=== PATIENT | female | born 1950 | race Caucasian/White ===

== ENCOUNTER 2025-10-16 10:03 | Inpatient (IN) | payer MEDICARE, MEDICAID, SELFPAY ==
[2025-10-16] VITALS (10 sets, daily range): BP systolic 113–157; BP diastolic 55–88; PULSE 61–126; RESP 12–85; TEMP 36.4–37.6; O2SAT 85–100; BMI 33.9
--- NOTE | 2025-10-16 11:25 | XR_ITS ---
AP upright portable chest film 10/16/2025 at 11:49 a.m. INDICATION: Sepsis FINDINGS: Patient is status post multilevel surgical fusion at several levels in the mid lower cervical spine. There is moderately prominent S-shaped scoliosis of the dorsal spine. 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 Heart size is normal, there is mild elongation and tortuosity of the thoracic aorta. The mediastinum and hilar regions appear normal. Both right and left lungs and pleural space are clear normal. There are several old healed rib fractures posterolaterally on the right, at T6 and T7. IMPRESSION: 1. Mild elongation and tortuosity of the thoracic aorta. 2. Chest film otherwise normal, please see above
--- NOTE | 2025-10-16 11:25 | XR_ITS ---
Examination: CT brain head without contrast. 2-D sagittal coronal reconstructions Date and time of exam: October 16, 2025, 1147 hours INDICATIONS: Altered mental status today CTDI: vol (mGy): 61.7 DLP: (mGycm): 1303 Technique: Multiple CT axial sections of the brain have been obtained, 5 mm slice thickness. Contrast has not been administered. 2-D sagittal, coronal reconstructions have been obtained Low dose protocols were performed. One or more of the following dose reduction techniques were used; automated exposure control, adjustment of the mA and/or KV according to patient size, use of iterative reconstruction technique. Findings: No significant ventricular enlargement. Intra-axial or extra-axial hemorrhage density is not seen. No mass effect or midline shift Basal cisterns are not remarkable. Fourth ventricle is midline. Cranial vault intact. Benign bony exostosis off the posterior parietal lobe Impression: Negative for acute hemorrhage, mass effect or midline shift Advise clinical correlation and follow-up accordingly
--- NOTE | 2025-10-16 11:26 | EDNOTE_ITS ---
Altered Mental Status RME/HPI General Chief Complaint: Altered Mental Status Stated Complaint: AMS Time Seen by Provider: 10/16/25 11:20 Arrival date/time: 10/16/25 10:03 75-year-old female patient with significant history of Parkinson disease, hypertension DNR, selective treatment from SNF, was sent to us for e valuation regarding altered mental status. Normally patient is GCS 15, and on room air. Patient was noted to be last well-known time 12:30 AM this morning. Currently patient is alert and oriented x 1 only and she knows her name. Patient also was noted to be hypoxic, satting below 90 on room air. No other pertinent information can be extracted at this time. Related Data Allergies Allergy/AdvReac Type Severity Reaction Status Date / Time No Known Allergies Allergy Verified 10/16/25 11:56 Review of Systems Review of Systems Narrative Review of Systems: Review of system reviewed and within normal limits except mentioned in HPI ED Exam Narrative Physical exam: VITAL SIGNS: Reviewed. GENERAL APPEARANCE: Alert and oriented x 1, does not follows commands, no acute distress, HEAD AND FACE: Non-traumatic. ENT: PERRL, pink conjunctivitis, eyelid no trauma, Mucous membrane moist. NECK: Supple, nontender, no nuchal rigidity. CHEST: No tenderness, no crepitus, no paradoxical movement, no retractions. LUNGS: Clear, well ventilated, symmetric, no rales, no wheezing, no ronchi, no stridor, good breath sounds bilaterally. HEART: Regular rate, regular rhythm, no murmur, no gallops. ABDOMEN: Soft, positive bowel sounds, nondistended, no guarding, nontender, no rebound, no masses, RECTAL: Deferred. GENITAL: Deferred. NEUROLOGICAL: Gross motor function intact sensory function intact, Appropriate for age. MUSCULOSKELETAL: low back nontender, full range of motion. EXTREMITIES: Nontender, full range of motion. SKIN: Color pink, dry, no rash, no lacerations, no abrasions, no contusions. LYMPHATICS: Deferred. Course Quality Measures none Orders Category Date Time Status Admit to Inpatient Status Routine Admission 10/16/25 15:50 Active Patient Condition Routine Admission 10/16/25 15:50 Ordered Bedside COVID-19 Antigen Test NOW Care 10/16/25 11:26 Active Bedside Influenza A&B Antigen Test NOW Care 10/16/25 11:26 Completed COVID-19 Screening Questionnaire NOW Care 10/16/25 13:39 Active Photographic Hand Developer STAT Care 10/16/25 11:24 Active Continuous Pulse Oximetry STAT Care 10/16/25 11:24 Completed Decision to Admit X1 Care 10/16/25 13:39 Completed EKG (ED ONLY) *Do not use* NOW Care 10/16/25 10:36 Completed EKG (ED ONLY) *Do not use* NOW Care 10/16/25 11:24 Completed In and Out Catheter X1PRN Care 10/16/25 11:24 Completed Insert IV NOW Care 10/16/25 11:24 Active NPO STAT Care 10/16/25 11:24 Active Notify provider NEEDED Care 10/16/25 15:50 Active One-to-one observation NOW Care 10/16/25 13:09 Active Strict Intake and Output Routine Care 10/16/25 11:[address] head/brain wo con Stat Exams 10/16/25 11:25 Completed EKG (ED Only) Stat Exams 10/16/25 10:36 Ordered EKG (ED Only) Stat Exams 10/16/25 11:24 Ordered XR chest 1V SEPSIS PROTOCOL Stat Exams 10/16/25 11:25 Completed ABG [Arterial Blood Gas] Stat Lab 10/16/25 12:40 Completed B-Type Natriuretic Peptide Stat Lab 10/16/25 11:45 Completed Blood Culture (Lab) Stat Lab 10/16/25 12:00 Received CBC AM DRAW Lab 10/17/25 05:00 Ordered CBC AM DRAW Lab 10/18/25 05:00 Ordered CBC AM DRAW Lab 10/19/25 05:00 Ordered CBC Stat Lab 10/16/25 11:45 Completed Comprehensive Metabolic Panel AM DRAW Lab 10/17/25 05:00 Ordered Comprehensive Metabolic Panel AM DRAW Lab 10/18/25 05:00 Ordered Comprehensive Metabolic Panel AM DRAW Lab 10/19/25 05:00 Ordered Comprehensive Metabolic Panel Stat Lab 10/16/25 11:45 Completed LDH (Lactate Dehydrogenase) Stat Lab 10/16/25 11:45 Completed Lactate (Lactic Acid) Stat Lab 10/16/25 11:45 Completed Lactic Acid, 3 HR Stat Lab 10/16/25 15:48 Completed Lipase Stat Lab 10/16/25 11:45 Completed Lipid Panel AM DRAW Lab 10/17/25 05:00 Ordered Magnesium AM DRAW Lab 10/17/25 05:00 Ordered Magnesium AM DRAW Lab 10/18/25 05:00 Ordered Magnesium AM DRAW Lab 10/19/25 05:00 Ordered Magnesium Stat Lab 10/16/25 11:45 Completed Partial Thromboplastin Time Stat Lab 10/16/25 11:45 Completed Phosphorous AM DRAW Lab 10/17/25 05:00 Ordered Phosphorous AM DRAW Lab 10/18/25 05:00 Ordered Phosphorous AM DRAW Lab 10/19/25 05:00 Ordered Phosphorous Stat Lab 10/16/25 11:45 Completed Procalcitonin Stat Lab 10/16/25 11:45 Completed Prothrombin Time with INR Stat Lab 10/16/25 11:45 Completed Thyroid Stimulating Hormone AM DRAW Lab 10/17/25 05:00 Ordered Troponin I Stat Lab 10/16/25 11:45 Completed Urinalysis, C/S if Indicated Stat Lab 10/16/25 11:44 Completed Heparin Inj Med 10/16/25 21:00 Active 5,000 unit SC Q12HR Magnesium Sulfate 4 GM Ivpb [Magnesium Sulfate Ivpb] Med 10/16/25 12:47 Active 4 gm in 50 ml IV X1 Ringers Lactated 1000 ml [Lactated Ringers] 1,000 ml Med 10/16/25 11:26 Discontinued IV 999 mls/hr Ringers Lactated 1000 ml [Lactated Ringers] 1,000 ml Med 10/16/25 13:36 Discontinued IV 999 mls/hr cefTRIAXone/D5w 1gm IV premix [Rocephin/D5w 1gm IV Med 10/16/25 12:15 Disc ontinued premix] 1 gm in 50 ml IV X1 Code Status Routine Oth 10/16/25 15:50 Ordered BiPAP / CPAP NOW RT 10/16/25 13:10 Active Oxygen Delivery NOW RT 10/16/25 11:24 Active Vital Signs Vital signs: Vital Signs Temperature 99.6 F 10/16/25 10:35 Pulse Rate 85 10/16/25 10:35 Respiratory Rate 12 10/16/25 10:35 Blood Pressure 122/88 H 10/16/25 10:35 Pulse Oximetry (%) 96 10/16/25 10:35 Oxygen Delivery Method Nasal Cannula 10/16/25 10:35 Oxygen Flow Rate 4 10/16/25 10:35 Altered Mental Status MDM Narrative MDM Narrative:: 75-year-old female patient with significant history of Parkinson disease, hypertension DNR, selective treatment from SNF, was sent to us for evaluation regarding altered mental status. Normally patient is GCS 15, and on room air. Patient was noted to be last well-known time 12:30 AM this morning. Currently patient is alert and oriented x 1 only and she knows her name. Patient also was noted to be hypoxic, satting below 90 on room air. No other pertinent information can be extracted at this time. CT scan of the head came back unremarkable as chest x-ray also came back with no pneumonia. Patient's lactic acid initially was noted to be 11.1. Magnesium 0.9 phosphorus 2.3 calcium 7.1 urinalysis no UTI. ABG showed pH of 7.17, pCO2 98. Patient was given 2 L of IV fluids, IV ceftriaxone, and I placed her on BiPAP. Patient repeat lactic acid was noted to be 1.1. Patient case discussed with hospitalist, who admitted the patient. Patient data External records reviewed:: None Clinical information provided by:: none Social determinants that could affect healthcare access:: none Patient has the following chronic illnesses:: DNR, hypertension Parkinson's How is presenting disease/condition affected by chronic disease/condition?: exacerbated by Evaluation data The following diagnostics were reviewed and interpreted by me:: lab results, radiology exam(s) and EKG tracing(s) Lab and/or radiology exams considered but not ordered:: None Interpretation Summary: See above EKG showed sinus rhythm, ventricular rate of 98 bpm, no ST segment elevation or depression noted. Medications / Prescriptions Medications or Prescriptions considered but not ordered:: None Medication administrations:: Medication Administration History Heparin Sodium (Porcine) (Heparin Sod Inj 5000 Unit/Ml Vial) 5,000 unit SC Q12HR RADHA Stop: 10/30/25 20:59 Magnesium Sulfate (Magnesium Sulfate Ivpb) 4 gm in 50 mls @ 12.5 mls/hr IV X1 ONE Stop: 10/16/25 16:46 Last Admin: 10/16/25 12:55 Dose: 12.5 mls/hr Documented By: VG Discontinued Medications Ceftriaxone Sodium/Dextrose (Rocephin/D5w 1gm Iv Premix) 1 gm in 50 mls @ 100 mls/hr IV X1 ONE Stop: 10/16/25 12:44 Last Infusion: 10/16/25 13:36 Dose: Infused Documented By: Admin: 10/16/25 12:35 Dose: 100 mls/hr Documented By: VG Lactated Ringer's (Lactated Ringers) 1,000 mls @ 999 mls/hr IV .Q1H1M ONE Stop: 10/16/25 12:26 Last Infusion: 10/16/25 13:15 Dose: Infused Documented By: Admin: 10/16/25 12:01 Dose: 999 mls/hr Documented By: VG Lactated Ringer's (Lactated Ringers) 1,000 mls @ 999 mls/hr IV .Q1H1M ONE Stop: 10/16/25 14:36 Last Infusion: 10/16/25 15:29 Dose: Infused Documented By: Admin: 10/16/25 13:56 Dose: 999 mls/hr Documented By: VG IV fluids, ceftriaxone IV, magnesium sulfate Consultations Consultation(s) initiated? (list below): No Diagnosis Differential diagnosis altered mental status: altered mental status and sepsis Most likely diagnosis given after review of the tests above:: Altered mental status, acute hypercapnic respiratory failure Admission Indicated Admission indicated?: indicated Admission Request Was there a request for admission?: Yes Admission Attestation Admission request attestation: Discussed case with [Dr. Hernandez] from Hospitalist service regarding admission. Discussed patients ED course, exam findings, labs, and radiology results. The Hospitalist [agrees] to accept the patient for admission. Disposition Plan Disposition Plan: Admit Discharge Plan Plan Patient Disposition: Admit Acute Care w/in Hospital Discharge Disposition comment: Stable Prescriptions/Referrals Referrals: Gustavo Payne MD [Primary Care Provider] - In 1 week Problem List Clinical Impression: Altered mental status, Acute hypercapnic respiratory failure Patient/Caregiver Discharge Instructions Print Language: Tajik Stand Alone Forms: [employer] Award Info., Patient Portal Info Letter
--- NOTE | 2025-10-16 11:35 | PC.NURSE ---
PT TAKEN TO CT.
[2025-10-16 12:00] LABS: Basophils # (Auto) 0.0 Thou/mm3 (0.0-0.2); Basophils % (Auto) 0 % (0-2.5); Eosinophils # (Auto) 0.1 Thou/mm3 (0.0-0.5); Eosinophils % (Auto) 2 % (0-10); Hematocrit 26.0 % (36.0-46.0); Immature Granulocytes Auto 0.03 Thou/mm3 (0.00-0.00); Lymphocytes # (Auto) 0.9 Thou/mm3 (1.0-4.8); Lymphocytes % (Auto) 20 % (10-50); Mean Corpuscular HGB Conc 31.9 g/dl (31.0-37.0); Mean Corpuscular Hemoglobin 32.3 pg (25.0-35.0); Mean Corpuscular Volume 101 fL (80-100); Monocytes # (Auto) 0.6 Thou/mm3 (0.0-0.8); Monocytes % (Auto) 13 % (0-12); Neutrophils # (Auto) 3.0 Thou/mm3 (1.8-7.7); Neutrophils % (Auto) 64 % (37-80); Nucleated Red Blood Cell # 0.00 Thou/mm3 (0.00-0.00); Nucleated Red Blood Cell % 0 /100 WBC (0); Platelet Count 130 Thou/mm3 (140-440); RDW Standard Deviation 49.6 fL (36.4-46.3); Red Blood Count 2.57 Miln/mm3 (4.00-5.20); White Blood Count 4.6 Thou/mm3 (3.6-11.0)
[2025-10-16 12:01] LABS: Lactate (Lactic Acid) 11.9 mMol/L (0.4-2.0)
[2025-10-16] MEDS: RINGERS LACTATED 1000 ML 1,000 ML 999 ML IV ×2 (12:01→13:56)
[2025-10-16 12:03] LABS: Hemoglobin 8.3 g/dL (12.0-16.0)
[2025-10-16 12:05] LABS: Collection Type, Urine Clean Catch
[2025-10-16 12:14] LABS: Bacteria,Urine Rare; Bilirubin,Urine Negative (Negative); Blood,Urine Negative (Negative); Clarity,Urine Clear (Clear/Hazy); Color,Urine Drk-Yellow (Lt Yel-Yel); Culture Indicated,Urine Not Indicated; Glucose, Urine Negative (Negative); Hyaline Casts,Urine < 1 /hpf (0-1); Ketones,Urine Negative (Negative); Leukocyte Esterase,Urine Positive (Negative); Nitrite,Urine Negative (Negative); PH,Urine 6.0 (5.0-7.0); Protein,Urine Negative (Neg - Trace); RBC,Urine 3 /hpf (0-3); Specific Gravity,Urine 1.020 (1.001-1.035); Squamous Epithelial Cell,Urine < 1 /hpf (0-5); Urobilinogen,Urine Negative mg/dL (0.0-1.0); WBC,Urine 4 /hpf (0-5)
[2025-10-16 12:35] LABS: Alanine Aminotransferase < 7 U/L (10-49); Albumin, Serum 1.7 gm/dL (3.4-4.8); Albumin/Globulin Ratio 1.1 (1.2-2.2); Alkaline Phosphatase 42 U/L (46-116); Anion Gap 15 (7-16); Aspartate Amino Transferase 12 U/L (0-34); BUN/Creatinine Ratio 58 Ratio (12-20); Bilirubin,Total < 0.2 mg/dL (0.3-1.2); Blood Urea Nitrogen 23 mg/dL (9-23); Calcium 7.1 mg/dL (8.3-10.6); Calcium (Corrected) 8.9 mg/dL (8.5-10.1); Carbon Dioxide 22.3 mMol/L (20.0-31.0); Chloride 103 mMol/L (98-107); Creatinine (Component) 0.4 mg/dL (0.6-1.3); Globulin 1.6 gm/dL (2.3-3.5); Glucose 77 mg/dL (74-106); LDH (Lactate Dehydrogenase) 121 U/L (120-246); Lipase 24 U/L (12-53); Osmolality,Calculated 282 (275-295); Phosphorous 2.3 mg/dL (2.4-5.1); Potassium 4.5 mMol/L (3.4-5.1); Procalcitonin < 0.04 ng/ml (0.0-0.49); Sodium 140 mMol/L (136-145); Total Protein 3.3 gm/dL (5.7-8.2); Troponin I < 0.002 ng/mL (0.0-0.045); eGFR > 60 See Note
[2025-10-16] MEDS: cefTRIAXone/D5w 1gm IV premix 1 GM/50 ML BAG IV (12:35)
[2025-10-16 12:46] LABS: Magnesium 0.9 mg/dL (1.6-2.6)
[2025-10-16 12:47] LABS: Base Excess 3 (-3-3); HCO3 35 mEq/L (20-26); Inspired O2, VO2 Liters 6 L/min; Inspired Oxygen, FIO2 21 %; O2 Saturation 95 % (91-98); PCO2 98 mmHg (32.0-48.0); PO2 88 mmHg (83-108)
[2025-10-16 12:48] LABS: pH, Arterial 7.17 (7.35-7.45)
[2025-10-16 12:49] LABS: Allen Test Performed/OK; Puncture Site Right Radial
[2025-10-16] MEDS: Magnesium Sulfate 4 GM Ivpb 4 GM/50 ML BAG IV (12:55)
[2025-10-16 13:16] LABS: INR 1.2 (0.9-1.3); Partial Thromboplastin Time 30.1 Seconds (22.0-36.0); Prothrombin Time 12.9 Seconds (9.0-12.2)
[2025-10-16 13:17] LABS: B-Type Natriuretic Peptide 22 pg/mL (0-100)
--- NOTE | 2025-10-16 13:45 | PC.RT ---
Patient placed on NIV for respiratory failure. Pt tolerating settings of 14/6/RR20/30%FiO2. Sitter at bedside. NIV alarms on and audible.
[2025-10-16 14:54] LABS: Reflex Lactate? Y
[2025-10-16 15:55] LABS: Lactic Acid, 3 HR 1.1 mMol/L (0.4-2.0)
--- NOTE | 2025-10-16 16:15 | ESHP_ITS ---
<Statement entered by Rex Cuadra MD - 10/19/25 08:03> I reviewed above note and agree with findings and plans. I have also personally examined the patient with medicine team and went over assessment and plan with medical team including international project manager and resident physician. Documentation for date of: 10/16/25 HPI History of Present Illness History of present illness: Patient is a 75 year old female with PMH of Parkinsonism, HLD, HTN, chronic peripheral venous insufficiency, ?chronic back pain, asthma, hypothyroidism, NF, and GERD who presents to the ED on 10/16/[address] [facility] for altered mental status. GCS 7 per EMT, was told by staff that last known well was 12:30AM. Was GCS 15 in ED on evaluation but was not answering questions. History was obtained from brother due to patient's current mental status. He reports that patient had slurring speech and was not making sense for the past 2 days. Of note, patient was started on risperidol and divalproex acid on 10/13 per chart review, was discontinued from olanzapine. Has been bed bound for the past month due to generalized weakness. AOx3 at baseline per brother. ED Course: -Initial vitals: BP 122/88, saturating 4L NC. -Labs significant for hemoglobin 8.3, platelets 130. WBC within normal limits. CMP unremarkable, however lactic 11.9, phosphorus 2.3, magnesium 0.9, albumin 1.7. LDH, troponin, Pro-Atul negative. - ABG pH 7.17, pCO2 98 --> improved after BiPAP - UA was positive for leukocyte esterase, however rare bacteria. -Imaging included CXR mild elongation and tortuosity of the thoracic aorta, otherwise unremarkable. Negative for PNA. Head CT negative for acute infarct. -In the ED, patient was given 2 L LR bolus, CFX x 1, magnesium sulfate 4 g x 1. -Patient was admitted for acute encephalopathy secondary to polypharmacy versus metabolic. Review of Systems Review of systems otherwise negative except what is mentioned above. Past Medical History: as above Family History: noncontributory Surgical History: right artificial hip joint Social History: Denies history of smoking, denies current alcohol use, denies recreational drug use Current Medications: pending official med rec Allergies: No known drug allergies Exam Vital Signs Temp Pulse Resp BP Pulse Ox O2 Del Method O2 Flow Rate 97.6 F 91 14 113/55 L 98 BiPAP 4 10/16/25 14:00 10/16/25 14:00 10/16/25 14:00 10/16/25 14:00 10/16/25 14:00 10/16/25 14:00 10/16/25 10:35 FiO2 30 10/16/25 14:00 Narrative Exam Physical Exam General: Drowsy. Following simple commands but not answering questions. On BiPAP. HEENT: Normocephalic, atraumatic, mucous membranes dry. Heart: Regular rate and rhythm, normal S1 and S2, no murmurs appreciated. Lungs: Decreased breath sounds in lower lobes. No rhonchi, wheezing, or crackles appreciated. Abdomen: Soft, nondistended, nontender, positive bowel sounds. No guarding or rebound tenderness. Neurologic: No gross neurological deficit, and patient able to move all 4 extremities. Extremities: Extremities cool, mildly cyanotic. Pulses present. Decreased strength in lower extremities. No neurological deficits noted. Skin: No rash or ecchymoses. Results: Labs 10/17/25 05:57 10/17/25 05:57 Labs: Short CBC 10/16/25 Range/Units 11:45 WBC 4.6 (3.6-11.0) Thou/mm3 Hgb 8.3 L (12.0-16.0) g/dL Hct 26.0 L (36.0-46.0) % Plt Count 130 L (140-440) Thou/mm3 BMP 10/16/25 11:45 Sodium 140 Potassium 4.5 Chloride 103 Carbon Dioxide 22.3 BUN 23 Creatinine 0.4 L Glucose 77 Calcium 7.1 L Cardiac Enzymes 10/16/25 Range/Units 11:45 Troponin I < 0.002 (0.0-0.045) ng/mL Liver Function 10/16/25 Range/Units 11:45 Total Bilirubin < 0.2 L (0.3-1.2) mg/dL AST 12 (0-34) U/L ALT < 7 L (10-49) U/L Alkaline Phosphatase 42 L (46-116) U/L Albumin 1.7 L (3.4-4.8) gm/dL Urine 10/16/25 Range/Units 11:44 Urine Color Drk-Yellow A (Lt Yel-Yel) Urine Clarity Clear (Clear/Hazy) Urine pH 6.0 (5.0-7.0) Ur Specific [place] 1.020 (1.001-1.035) Urine Protein Negative (Neg - Trace) Urine Glucose (UA) Negative (Negative) ABG Interpretation ABG results: 10/16/25 12:40 ABG pH 7.17 L* ABG pCO2 98 H* ABG pO2 88 ABG HCO3 35 H ABG O2 Saturation 95 ABG Base Excess 3 Quality Measures Quality Measures VTE prophylaxis Advance care planning discussed with:: sibling Medications Home Medications and Allergies Home Medications ?Medication ?Instructions ?Recorded ?Confirmed ?Type acetaminophen 500 mg capsule 500 mg PO Q12H PRN pain ( scale 10/16/25 10/16/25 History score 4-6) albuterol sulfate 2.5 mg/3 mL 1.25 mg inhalation Q6H 1 12/17/24 10/16/25 History (0.083 %) solution for nebulization albuterol sulfate 90 mcg/actuation 2 inh inhalation Q4 H PRN sob 10/16/25 10/16/25 History aerosol inhaler (Ventolin HFA) bisacodyl 10 mg rectal suppository 10 mg VA QDAY PRN c onstipation 10/16/25 10/16/25 History (Dulcolax (bisacodyl)) bismuth subsalicylate 262 mg/15 mL 524 mg PO Q12H PRN nausea 10/16/25 10/16/25 History oral suspension cholecalciferol (vitamin D3) 125 5,000 unit PO QDAY 10/16/25 History mcg (5,000 unit) tablet divalproex 500 mg tablet,delayed 500 mg PO BID 5 10/16/25 History release duloxetine 60 mg capsule,delayed 60 mg PO QDAY 5 10/16/25 History release sprinkle estradiol 0.5 mg tablet 0.5 mg PO QDAY 10/16/2509/22 History fluticasone furoate 100 1 inh inhalation QDAY 10/16/25 History mcg/actuation blister powder for inhalation (Arnuity Ellipta) furosemide 20 mg tablet (Lasix) 20 mg PO QDAY 10/16/25 10/16/25 History levothyroxine 150 mcg capsule 150 mcg PO QDAY 10/16/25 10/16/25 History liothyronine 5 mcg tablet 10 mcg PO QDAY 10/16/2509/22 History losartan 50 mg tablet 50 mg PO QDAY 10/16/2510/16 History magnesium hydroxide 400 mg/5 mL 30 ml PO QDAY PRN cons tipation 10/16/25 10/16/25 History oral suspension (Milk of Magnesia) melatonin 10 mg capsule 10 mg PO QPM 10/16/25 History olanzapine 5 mg tablet 5 mg PO Q6HR PRN agitation 1 12/17/24 10/16/25 History ondansetron HCl 4 mg tablet 4 mg PO Q6H 10/16/2510/16 History oxybutynin chloride 5 mg tablet 5 mg PO BID urinary re tention 10/16/25 10/16/25 History pantoprazole 40 mg tablet,delayed 40 mg PO QDAY 10/16/25 History release potassium chloride 10 mEq 10 meq PO QDAY 10/16/2509/22 History capsule,extended release pregabalin 100 mg capsule 100 mg PO TID 10/16/2510/16 History primidone 50 mg tablet 150 mg PO BID 10/16/2510/16 History ropinirole 3 mg tablet 3 mg PO TID 10/16/25 5 History sennosides 8.6 mg-docusate sodium 1 tab-cap PO BID 10/16/25 History 50 mg tablet (Senna Plus) sodium phosphates 19 gram-7 118 ml VA QDAY PRN constip ation 10/16/25 10/16/25 History gram/118 mL enema (Fleet Enema) trazodone 50 mg tablet 50 mg PO QPM 10/16/25 History vitamin B complex 1 tab PO QDAY 10/16/2510/16 History Allergies Allergy/AdvReac Type Severity Reaction Status Date / Time No Known Allergies Allergy Verified 10/16/25 11:56 Visit Medications Heparin Sodium (Porcine) (Heparin Sod Inj 5000 Unit/Ml Vial) 5,000 unit SC Q12HR RADHA Stop: 10/30/25 20:59 Magnesium Sulfate (Magnesium Sulfate Ivpb) 4 gm in 50 mls @ 12.5 mls/hr IV X1 ONE Stop: 10/16/25 16:46 Last Admin: 10/16/25 12:55 Dose: 12.5 mls/hr Discontinued Medications Ceftriaxone Sodium/Dextrose (Rocephin/D5w 1gm Iv Premix) 1 gm in 50 mls @ 100 mls/hr IV X1 ONE Stop: 10/16/25 12:44 Last Infusion: 10/16/25 13:36 Dose: Infused Lactated Ringer's (Lactated Ringers) 1,000 mls @ 999 mls/hr IV .Q1H1M ONE Stop: 10/16/25 12:26 Last Infusion: 10/16/25 13:15 Dose: Infused Lactated Ringer's (Lactated Ringers) 1,000 mls @ 999 mls/hr IV .Q1H1M ONE Stop: 10/16/25 14:36 Last Infusion: 10/16/25 15:29 Dose: Infused Assessment & Plan Plan Patient is a 75 year old female with PMH of Parkinsonism, HLD, HTN, chronic peripheral venous insufficiency, asthma, hypothyroidism, NF, and GERD who presents to the ED on 10/16/[address] [facility] for altered mental status. Admitted to telemetry for acute encephalopathy secondary to polypharmacy versus metabolic. #Acute encephalopathy 2/2 polypharmacy versus metabolic vs toxic - Per brother patient had slurring speech and was not making sense for the past 2 days. AOx3, conversational and able to answer questions appropriately at baseline per brother but has history of developmental delay . - Of note, patient was started on risperidol and divalproex on 10/13 per chart review, was discontinued from olanzapine. - Found with GCS 7 by EMS, improved to GCS 14 in ED. - WBC WNL. Procal, trop, and LDH negative. - ABG pH 7.17, pCO2 98 - UA was positive for leukocyte esterase, however rare bacteria. Unlikely UTI. - CT head negative for acute infarct. - Low suspicion for sepsis as she does not meet sepsis criteria and there is no suspected source of infection. - S/p CFX x1 and 2L LR bolus Plan: - Hold risperidol and divalproex. Consider consulting neurology if patient fails to improve off medications - Neuro check q4hr - NPO - SLE consulted #AHRF likely secondary to respiratory depression from polypharmacy #Hx asthma #Respiratory acidosis #Lactic acidosis (resolved) - Last taken risperidol and divalproex yesterday, new medications started on 10/13 which co-incides with time of altered mental status per brother's history - Lactic 11.9 on admission, improved to 1.1 s/p 3L IVF bolus - Suspect false elevation to that degree but possibly elevated secondary to respiratory depression - ABG pH 7.17, pCO2 98 - CXR negative for PNA Plan: - Hold meds as above - On BiPAP - Wean O2 as tolerated - Duonebs prn #Hypomagnesemia - Mg 0.5 on admission Plan: - Repleted with 4g IV magnesium sulfate #Hypothyroidism - On levothyroxine 150 mcg daily and liothyronine 10 mcg daily Plan: - Resume home meds after passing swallow eval #Parkinsonism - On ropinirole 3 mg TID, primidone 150 mg BID Plan: - Resume home meds after passing swallow eval #Hx of HTN - On Losartan 50 mg daily - BP 122/88 on admission Plan: - Resume when passes swallow eval - Labetalol 10 mg prn if SBP >180 #Depression #Agitation #Insomnia - On duloxetine 60 mg daily, melatonin 10 mg, and trazadone 50 mg HS - Previously on olanzapine for agitation but was changed to risperidol and divalproex as above Plan: - Resume duloxetine and melatonin if patient passes swallow eval - Hold trazadone - Hold olanzapine, risperidol, and divalproex - Seroquel prn for agitation #Neuropathy - On pregabalin 100 mg TID Plan: - Hold for now #Hx constipation - Bowel regimen prn Health Maintenance Disposition: telemetry DVT prophylaxis: heparin SQ GI prophylaxis: none Diet: NPO CODE STATUS: DNR Patient plan of care was discussed with the senior resident, Dr. Donis, and the attending physician, Dr. Cuadra. Flor Lerma DO, PGY-1
[2025-10-16 17:30] LABS: Base Excess 5 (-3-3); HCO3 34 mEq/L (20-26); O2 Saturation 99 % (91-98); PCO2 73 mmHg (32.0-48.0); PO2 395 mmHg (83-108); pH, Arterial 7.28 (7.35-7.45)
[2025-10-16 17:31] LABS: Allen Test Not Performed; Inspired Oxygen, FIO2 100 %; Puncture Site Right Radial
[2025-10-16 18:00] LABS: Thyroid Stimulating Hormone 2.03 uIU/mL (0.55-4.78)
[2025-10-16 18:27] LABS: Anion Gap 5 (7-16); BUN/Creatinine Ratio 27 Ratio (12-20); Blood Urea Nitrogen 19 mg/dL (9-23); Calcium 8.9 mg/dL (8.3-10.6); Carbon Dioxide 32.5 mMol/L (20.0-31.0); Chloride 103 mMol/L (98-107); Creatinine (Component) 0.7 mg/dL (0.6-1.3); Estimated Creatinine Clearance 91.9 mL/min (>60); Glucose 117 mg/dL (74-106); Magnesium 2.5 mg/dL (1.6-2.6); Osmolality,Calculated 282 (275-295); Potassium 5.0 mMol/L (3.4-5.1); Sodium 140 mMol/L (136-145); eGFR > 60 See Note
[2025-10-16] MEDS: THIAMINE INJ 100 MG/ML VIAL 2 ML IVP (19:51)
[2025-10-16] MEDS: SODIUM CHLORIDE 0.9% 1000 ML 1,000 ML 50 ML IV (19:52)
[2025-10-16] MEDS: HEPARIN SOD INJ 5000 UNIT/ML VIAL SC (21:13)
[2025-10-16] MEDS: ACETAMINOPHEN 325 MG TABLET 650 MG PO (23:23)
[2025-10-16] MEDS: MORPHINE SULF INJ 4 MG/ML VIAL IVP (23:51)
[2025-10-17] VITALS (14 sets, daily range): BP systolic 108–162; BP diastolic 56–94; PULSE 60–94; RESP 11–30; TEMP 36.2–36.7; O2SAT 92–100
[2025-10-17 00:46] LABS: Base Excess 6 (-3-3); HCO3 34 mEq/L (20-26); Inspired Oxygen, FIO2 35 %; O2 Saturation 97 % (91-98); PCO2 62 mmHg (32.0-48.0); PO2 95 mmHg (83-108); pH, Arterial 7.35 (7.35-7.45)
[2025-10-17 00:51] LABS: Allen Test Performed/OK; Puncture Site Right Radial
[2025-10-17] MEDS: MORPHINE SULF INJ 4 MG/ML VIAL IVP ×2 (04:05→08:25)
[2025-10-17] MEDS: LEVOTHYROXINE SODIUM 125 MCG, LEVOTHYROXINE SODIUM 25 MCG 150 MCG PO (06:28)
[2025-10-17 06:40] LABS: Basophils # (Auto) 0.0 Thou/mm3 (0.0-0.2); Basophils % (Auto) 0 % (0-2.5); Eosinophils # (Auto) 0.2 Thou/mm3 (0.0-0.5); Eosinophils % (Auto) 3 % (0-10); Hematocrit 40.1 % (36.0-46.0); Hemoglobin 12.9 g/dL (12.0-16.0); Immature Granulocytes Auto 0.04 Thou/mm3 (0.00-0.00); Lymphocytes # (Auto) 1.0 Thou/mm3 (1.0-4.8); Lymphocytes % (Auto) 15 % (10-50); Mean Corpuscular HGB Conc 32.2 g/dl (31.0-37.0); Mean Corpuscular Hemoglobin 31.9 pg (25.0-35.0); Mean Corpuscular Volume 99 fL (80-100); Monocytes # (Auto) 1.0 Thou/mm3 (0.0-0.8); Monocytes % (Auto) 14 % (0-12); Neutrophils # (Auto) 4.8 Thou/mm3 (1.8-7.7); Neutrophils % (Auto) 68 % (37-80); Nucleated Red Blood Cell # 0.00 Thou/mm3 (0.00-0.00); Nucleated Red Blood Cell % 0 /100 WBC (0); Platelet Count 188 Thou/mm3 (140-440); RDW Standard Deviation 47.4 fL (36.4-46.3); Red Blood Count 4.05 Miln/mm3 (4.00-5.20); White Blood Count 7.1 Thou/mm3 (3.6-11.0)
[2025-10-17 06:43] LABS: Glucose Estimated Average 91 mg/dL (80-131); Hemoglobin A1C 4.8 % Hgb (4.8-6.0)
[2025-10-17 07:26] LABS: Alanine Aminotransferase 170 U/L (10-49); Albumin, Serum 3.4 gm/dL (3.4-4.8); Albumin/Globulin Ratio 1.1 (1.2-2.2); Alkaline Phosphatase 168 U/L (46-116); Anion Gap 6 (7-16); Aspartate Amino Transferase 383 U/L (0-34); BUN/Creatinine Ratio 27 Ratio (12-20); Bilirubin,Total 0.4 mg/dL (0.3-1.2); Blood Urea Nitrogen 19 mg/dL (9-23); Calcium 8.7 mg/dL (8.3-10.6); Calcium (Corrected) 9.2 mg/dL (8.5-10.1); Carbon Dioxide 34.0 mMol/L (20.0-31.0); Cardiac Risk Estimate 2.6 RATIO (3.7-5.6); Chloride 102 mMol/L (98-107); Cholesterol 163 mg/dL (132-200); Creatinine (Component) 0.7 mg/dL (0.6-1.3); Estimated Creatinine Clearance 91.9 mL/min (>60); Globulin 3.2 gm/dL (2.3-3.5); Glucose 94 mg/dL (74-106); HDL Cholesterol 62 mg/dL (40-60); LDL Cholesterol,Calculated 88 mg/dL (0-130); Magnesium 2.0 mg/dL (1.6-2.6); Osmolality,Calculated 285 (275-295); Phosphorous 2.8 mg/dL (2.4-5.1); Potassium 4.6 mMol/L (3.4-5.1); Sodium 142 mMol/L (136-145); Total Protein 6.6 gm/dL (5.7-8.2); Triglycerides 65 mg/dL (30-150); eGFR > 60 See Note
--- NOTE | 2025-10-17 08:51 | XR_ITS ---
Examination: Bilateral hips, AP pelvis, 5 views Technique: AP, lateral views both hips, AP pelvis, 5 views Exam date and time: October 16, 2025, 1147 hours INDICATIONS: Left hip pain today. FINDINGS: Prominent osteopenia Moderate narrowing left hip joint No acute hip fracture noted Right hip arthroplasty Bones of the pelvis intact IMPRESSION: No acute hip fracture If pain persists recommend 1 to 2-day follow-up AP pelvis
[2025-10-17] MEDS: HEPARIN SOD INJ 5000 UNIT/ML VIAL SC ×2 (08:58→21:00)
[2025-10-17] MEDS: THIAMINE INJ 100 MG/ML VIAL 2 ML IVP (08:58)
--- NOTE | 2025-10-17 13:03 | ESPR_ITS ---
<Statement entered by Mary Donis MD - 10/17/25 16:01> Patient was seen and examined at bedside. I agree in the assessment and plan on this note. - Patient's plan and care discussed with my attending, Dr. Mirza Donis MD Internal Medicine PGY-3 Documentation for date of: 10/17/25 Subjective Subjective Interval history: This morning patient was seen and examined in the ED. Patient was given 4 mg morphine x1 overnight for back pain. Patient this morning states she is having bad pain in her bilateral groin and upper legs. Xray of hip and pelvis ordered and showed no acute fracture. Patient was difficult to talk with as she persistently stated she had pain. We adjusted the morphine dosage to 1 mg q4hr. Patient was noted to have elevated ast/alt which we suspect may be due to morphine usage as she was being given morphine q4hr from her subacute care & rehab facility. Speech therapy saw patient, passed swallow eval -> dysphagia 3 diet ordered. Patient tolerating nasal cannula well. Exam Vital Signs Temp Pulse Resp BP Pulse Ox O2 Del Method O2 Flow Rate 97.9 F 77 17 138/61 H 92 L Nasal Cannula 3 10/17/25 11:35 10/17/25 11:35 10/17/25 11:35 10/17/25 11:35 10/17/25 11:35 10/17/25 11:35 10/17/25 11:35 FiO2 30 10/17/25 05:54 Narrative Exam General: Acute distress due to groin/upper leg pain; A&Ox2? (difficult to assess as patient not cooperative) Skin: Warm, dry, intact, no obvious rash. HENT: NCAT, EOMI/PERRL, not icteric. External ears normal. No rhinorrhea. Dry mucous membranes Cardiovascular: Regular rate and rhythm, no murmur, +S1/S2. Respiratory: Lungs CTAB, nasal cannula GI: Soft, nontender, non-distended. No guarding or rebound tenderness. : No suprapubic tenderness. No flank tenderness bilaterally. Extremities: no edema, no cyanosis, no clubbing. Extremity pulses present Neuro: Grossly nonfocal. Moving all 4 extremities. CN not formally tested but appear grossly intact. Psychiatric: not cooperative Objective Labs 10/17/25 05:57 10/17/25 05:57 Labs: Laboratory Results - last 24 hr 10/16/25 10/16/25 10/16/25 11:44 11:45 15:48 WBC RBC Hgb Hct MCV MCH MCHC RDW Std Deviation Plt Count Neut % (Auto) Lymph % (Auto) Barren % (Auto) Eos % (Auto) Baso % (Auto) Neut # (Auto) Lymph # (Auto) Barren # (Auto) Eos # (Auto) Baso # (Auto) Immature Gran # (Auto) Absolute Nucleated RBC Immature Gran % Nucleated RBC % PT 12.9 H INR 1.2 APTT 30.1 Puncture Site ABG pH ABG pCO2 ABG pO2 ABG HCO3 ABG O2 Saturation ABG Base Excess FiO2 Sodium Potassium Chloride Carbon Dioxide Anion Gap BUN Creatinine Estim Creat Clear Calc eGFR BUN/Creatinine Ratio Glucose Estimated Ave Glu mg/dL Hemoglobin A1c Calculated Osmolality Lactic Acid 1.1 Calcium Corrected Calcium Phosphorus Magnesium Total Bilirubin AST ALT Alkaline Phosphatase B-Natriuretic Peptide 22 Total Protein Albumin Globulin Albumin/Globulin Ratio Triglycerides Cholesterol LDL Cholesterol, Calc HDL Cholesterol Cholesterol/HDL Ratio TSH 2.03 Ur Collection Type Clean Catch Urine Color Drk-Yellow A Urine Clarity Clear Urine pH 6.0 Ur Specific [place] 1.020 Urine Protein Negative Urine Glucose (UA) Negative Urine Ketones Negative Urine Blood Negative Urine Nitrite Negative Urine Bilirubin Negative Urine Urobilinogen (Auto) Negative Ur Leukocyte Esterase Positive Urine RBC 3 Urine WBC 4 Ur Squamous Epith Cells < 1 Urine Bacteria Rare Hyaline Casts < 1 Ur Culture Indicated? Not Indicated 10/16/25 10/16/25 10/17/25 17:20 18:02 00:41 WBC RBC Hgb Hct MCV MCH MCHC RDW Std Deviation Plt Count Neut % (Auto) Lymph % (Auto) Barren % (Auto) Eos % (Auto) Baso % (Auto) Neut # (Auto) Lymph # (Auto) Barren # (Auto) Eos # (Auto) Baso # (Auto) Immature Gran # (Auto) Absolute Nucleated RBC Immature Gran % Nucleated RBC % PT INR APTT Puncture Site Right Radial Right Radial ABG pH 7.28 L D 7.35 ABG pCO2 73 H* D 62 H D ABG pO2 395 H D 95 D ABG HCO3 34 H 34 H ABG O2 Saturation 99 H 97 ABG Base Excess 5 H 6 H FiO2 100 35 Sodium 140 Potassium 5.0 D Chloride 103 Carbon Dioxide 32.5 H Anion Gap 5 L BUN 19 Creatinine 0.7 Estim Creat Clear Calc 91.9 eGFR > 60 BUN/Creatinine Ratio 27 H Glucose [address] Glu mg/dL Hemoglobin A1c Calculated Osmolality 282 Lactic Acid Calcium 8.9 D Corrected Calcium Phosphorus Magnesium 2.5 Total Bilirubin AST ALT Alkaline Phosphatase B-Natriuretic Peptide Total Protein Albumin Globulin Albumin/Globulin Ratio Triglycerides Cholesterol LDL Cholesterol, Calc HDL Cholesterol Cholesterol/HDL Ratio TSH Ur Collection Type Urine Color Urine Clarity Urine pH Ur Specific [place] Urine Protein Urine Glucose (UA) Urine Ketones Urine Blood Urine Nitrite Urine Bilirubin Urine Urobilinogen (Auto) Ur Leukocyte Esterase Urine RBC Urine WBC Ur Squamous Epith Cells Urine Bacteria Hyaline Casts Ur Culture Indicated? 10/17/25 05:57 WBC 7.1 D RBC 4.05 Hgb 12.9 D Hct 40.1 D MCV 99 MCH 31.9 MCHC 32.2 RDW Std Deviation 47.4 H Plt Count 188 D Neut % (Auto) 68 Lymph % (Auto) 15 Barren % (Auto) 14 H Eos % (Auto) 3 Baso % (Auto) 0 Neut # (Auto) 4.8 Lymph # (Auto) 1.0 Barren # (Auto) 1.0 H Eos # (Auto) 0.2 Baso # (Auto) 0.0 Immature Gran # (Auto) 0.04 H Absolute Nucleated RBC 0.00 Immature Gran % 1 H Nucleated RBC % 0 PT INR APTT Puncture Site ABG pH ABG pCO2 ABG pO2 ABG HCO3 ABG O2 Saturation ABG Base Excess FiO2 Sodium 142 Potassium 4.6 Chloride 102 Carbon Dioxide 34.0 H Anion Gap 6 L BUN 19 Creatinine 0.7 Estim Creat Clear Calc 91.9 eGFR > 60 BUN/Creatinine Ratio 27 H Glucose [address] Glu mg/dL 91 Hemoglobin A1c 4.8 Calculated Osmolality 285 Lactic Acid Calcium 8.7 Corrected Calcium 9.2 Phosphorus 2.8 Magnesium 2.0 Total Bilirubin 0.4 AST 383 H ALT 170 H Alkaline Phosphatase 168 H D B-Natriuretic Peptide Total Protein 6.6 Albumin 3.4 D Globulin 3.2 Albumin/Globulin Ratio 1.1 L Triglycerides 65 Cholesterol 163 LDL Cholesterol, Calc 88 HDL Cholesterol 62 H Cholesterol/HDL Ratio 2.6 L TSH Ur Collection Type Urine Color Urine Clarity Urine pH Ur Specific [place] Urine Protein Urine Glucose (UA) Urine Ketones Urine Blood Urine Nitrite Urine Bilirubin Urine Urobilinogen (Auto) Ur Leukocyte Esterase Urine RBC Urine WBC Ur Squamous Epith Cells Urine Bacteria Hyaline Casts Ur Culture Indicated? ABG Interpretation ABG results: 10/16/25 10/16/25 10/17/25 12:40 17:20 00:41 ABG pH 7.17 L* 7.28 L D 7.35 ABG pCO2 98 H* 73 H* D 62 H D ABG pO2 88 395 H D 95 D ABG HCO3 35 H 34 H 34 H ABG O2 Saturation 95 99 H 97 ABG Base Excess 3 5 H 6 H Quality Measures Quality Measures VTE prophylaxis Advance care planning discussed with:: patient Assessment & Plan Assessment Current Active Medications: Generic Name Dose Route Start Last Admin Trade Name Freq PRN Reason Stop Dose Admin Acetaminophen 650 mg 10/16/25 23:15 10/16/25 23:23 Acetaminophen 325 Mg Tablet PO 11/15/25 23:14 650 mg Q6HR PRN Administration Fever > 100.4 or pain 1-3 Albuterol/Ipratropium 3 ml 10/16/25 17:38 Albuterol/Ipratropium (Duoneb) Rt Yvonne 3 Ml Nebu INH 11/15/25 18:59 Q4HRRT PRN wheezing Heparin Sodium (Porcine) 5,000 unit 10/16/25 21:00 10/17/25 08:58 Heparin Sod Inj 5000 Unit/Ml Vial SC 10/30/25 20:59 5,000 unit Q12HR ROLA Administration Sodium Chloride 1,000 mls @ 50 mls/hr 10/16/25 17:56 10/16/25 19:52 Ns IV 11/15/25 17:55 50 mls/hr .Q20H ROLA Administration Levothyroxine Sodium 125 mcg/ 150 mcg 10/17/25 06:00 10/17/25 06:28 Levothyroxine Sodium 25 mcg PO 11/16/25 05:59 150 mcg ACBR ROLA Administration Morphine Sulfate 1 mg 10/17/25 08:31 Morphine Sulf Inj 4 Mg/Ml Vial IVP 10/22/25 03:58 Q4HR PRN PAIN SCALE 4-6 (Moderate Quetiapine Fumarate 25 mg 10/16/25 17:43 Quetiapine Fumarate 25 Mg Tablet PO 11/15/25 17:44 QDAY PRN AGITATION (SEVERE) Thiamine HCl 100 mg 10/16/25 17:45 10/17/25 08:58 Thiamine Inj 100 Mg/Ml Vial 2 Ml IVP 11/15/25 17:44 100 mg QDAY ROLA Administration Plan Patient is a 75 year old female with PMH of Parkinsonism, HLD, HTN, chronic peripheral venous insufficiency, asthma, hypothyroidism, NF, and GERD who presents to the ED on 10/16/25 from [facility] for altered mental status. Admitted to telemetry for acute encephalopathy secondary to polypharmacy versus metabolic. #Acute encephalopathy 2/2 polypharmacy versus metabolic, improving - Per brother patient had slurring speech and was not making sense for the past 2 days. AOx3, conversational and able to answer questions appropriately at baseline per brother but has history of developmental delay . - Of note, patient was started on risperidol and divalproex on 10/13 per chart review, was discontinued from olanzapine. - Patient also noted to have been given morphine q4hrs at sub-acute rehab center. - Found with GCS 7 by EMS, improved to GCS 14 in ED. - WBC WNL. Procal, trop, and LDH negative. - ABG pH 7.17, pCO2 98 ; improvement on subsequent abg's - UA was positive for leukocyte esterase, however rare bacteria. Unlikely UTI. - CT head negative for acute infarct. - Low suspicion for sepsis as she does not meet sepsis criteria and there is no suspected source of infection. - S/p CFX x1 and 2L LR bolus Plan: - Hold recently started home risperidol and divalproex. - Will consult neurology if patient fails to improve off medications - Neuro check q4hr - Passed Speech Eval, dysphagia 3 diet started #AHRF likely secondary to respiratory depression from polypharmacy #Hx asthma #Respiratory acidosis #Lactic acidosis (resolved) - Last taken risperidol and divalproex yesterday, new medications started on 10/13 which co-incides with time of altered mental status per brother's history - Lactic 11.9 on admission, improved to 1.1 s/p 3L IVF bolus - Suspect false elevation to that degree but possibly elevated secondary to respiratory depression - ABG shows respiratoray acidosis which may have been from these medications - CXR negative for PNA Plan: - Hold meds as above - Nasal cannula, wean O2 as tolerated - Duonebs prn #Groin/Leg Pain Patient almost continuously expresses pain in groin/upper leg pain Hip/Pelvis XR negative for acute fracture -Morphine 1 mg q4h rola #Hypothyroidism - On levothyroxine 150 mcg daily and liothyronine 10 mcg daily Plan: - Resumed home levothyroxine 150 mcg daily #Parkinsonism - On ropinirole 3 mg TID, primidone 150 mg BID Plan: - Resumed ropinirole 3 mg TID #HTN - On Losartan 50 mg daily - BP 122/88 on admission Plan: - Resumed home losartan 50 mg daily #Depression #Agitation #Insomnia - Outpatient meds of duloxetine 60 mg daily, melatonin 10 mg, and trazadone 50 mg HS - Previously on olanzapine for agitation but was changed to risperidol and divalproex as above Plan: - Resume duloxetine and melatonin if patient passes swallow eval - Hold trazadone - Hold olanzapine, risperidol, and divalproex - Seroquel prn for agitation #Neuropathy - On pregabalin 100 mg TID Plan: - Hold for now #Hx constipation - Dulcolax suppository prn #Hypomagnesemia, RESOLVED - Mg 0.5 on admission Plan: - Repleted with 4g IV magnesium sulfate Health Maintenance Disposition: telemetry DVT prophylaxis: heparin SQ GI prophylaxis: none Diet: Dysphagia 3 CODE STATUS: DNR Patient plan of care was discussed with the attending physician, Dr. Blue & senior resident Dr. Jewels Britton MD PGY-1 Attending Provider Attestation/Addendum I have discussed and was present for the essential components of the history, physical examination, diagnosis, and treatment plan with the resident. I agree with the patient's care as documented by the resident and amended herein by me. Sridhar Blue DO. Although this document has been carefully reviewed, there may still be some phonetic and other typographical errors. These errors are purely grammatical due to imperfections in the software program and should not be construed in any way to compromise the substance of the patient's medical care during this visit. Patient seen and evaluated this AM. Patient still confused in the morning, unclear of what her baseline actually is, she just kept saying she was very sick and her left leg was in a lot of pain.This significant labs today include a largely unremarkable CBC. CMP remarkable for a CO2 of 34 and elevated liver enzymes, AST 383, ALT 170 and an ALK Phos of 168. Total bilirubin WNL. X-ray of the bilateral hips was negative for any acute fracture. CT head yesterday was negative for any acute intracranial pathology or acute stroke. We suspect the patient's altered mental status as well as respiratory depression is likely due to polypharmacy. According to the patient's med list she is on Risperdal, divalproex, duloxetine, olanzapine, primidone, ropinirole, trazodone and she endorsed being on morphine. We have held most of these with the exception of the ropinirole and will continue smaller doses of morphine to prevent withdraw and see how the patient does. Will also reach out to the patient's son for more history and continue to monitor closely.
[2025-10-17] MEDS: MORPHINE SULF INJ 4 MG/ML VIAL 1 MG IVP ×3 (13:29→23:27)
[2025-10-17] MEDS: SODIUM CHLORIDE 0.9% 1000 ML 1,000 ML 50 ML IV (15:10)
--- NOTE | 2025-10-17 16:12 | PC.NURSE ---
called md de la rosa for additonal meds patient still in pain and just has morphine order q4h
[2025-10-17] MEDS: MORPHINE SULF INJ 4 MG/ML VIAL 2 MG IVP (17:23)
[2025-10-18] VITALS (13 sets, daily range): BP systolic 146–173; BP diastolic 82–95; PULSE 70–101; RESP 15–31; TEMP 36.1–36.7; O2SAT 94–99; BMI 33.3
[2025-10-18] MEDS: LEVOTHYROXINE SODIUM 125 MCG, LEVOTHYROXINE SODIUM 25 MCG 150 MCG PO (05:14)
[2025-10-18] MEDS: MORPHINE SULF INJ 4 MG/ML VIAL 1 MG IVP ×4 (05:14→17:48)
[2025-10-18 05:17] LABS: Basophils # (Auto) 0.1 Thou/mm3 (0.0-0.2); Basophils % (Auto) 1 % (0-2.5); Eosinophils # (Auto) 0.3 Thou/mm3 (0.0-0.5); Eosinophils % (Auto) 5 % (0-10); Hematocrit 33.7 % (36.0-46.0); Hemoglobin 11.2 g/dL (12.0-16.0); Immature Granulocytes Auto 0.04 Thou/mm3 (0.00-0.00); Lymphocytes # (Auto) 1.0 Thou/mm3 (1.0-4.8); Lymphocytes % (Auto) 17 % (10-50); Mean Corpuscular HGB Conc 33.2 g/dl (31.0-37.0); Mean Corpuscular Hemoglobin 32.3 pg (25.0-35.0); Mean Corpuscular Volume 97 fL (80-100); Monocytes # (Auto) 0.9 Thou/mm3 (0.0-0.8); Monocytes % (Auto) 14 % (0-12); Neutrophils # (Auto) 3.8 Thou/mm3 (1.8-7.7); Neutrophils % (Auto) 63 % (37-80); Nucleated Red Blood Cell # 0.00 Thou/mm3 (0.00-0.00); Nucleated Red Blood Cell % 0 /100 WBC (0); Platelet Count 207 Thou/mm3 (140-440); RDW Standard Deviation 45.8 fL (36.4-46.3); Red Blood Count 3.47 Miln/mm3 (4.00-5.20); White Blood Count 6.1 Thou/mm3 (3.6-11.0)
[2025-10-18 05:39] LABS: Alanine Aminotransferase 93 U/L (10-49); Albumin, Serum 3.2 gm/dL (3.4-4.8); Albumin/Globulin Ratio 1.1 (1.2-2.2); Alkaline Phosphatase 133 U/L (46-116); Anion Gap 6 (7-16); Aspartate Amino Transferase 95 U/L (0-34); BUN/Creatinine Ratio 28 Ratio (12-20); Bilirubin,Total 0.4 mg/dL (0.3-1.2); Blood Urea Nitrogen 14 mg/dL (9-23); Calcium 8.6 mg/dL (8.3-10.6); Calcium (Corrected) 9.2 mg/dL (8.5-10.1); Carbon Dioxide 32.8 mMol/L (20.0-31.0); Chloride 104 mMol/L (98-107); Creatinine (Component) 0.5 mg/dL (0.6-1.3); Estimated Creatinine Clearance 127.0 mL/min (>60); Globulin 2.8 gm/dL (2.3-3.5); Glucose 94 mg/dL (74-106); Magnesium 1.7 mg/dL (1.6-2.6); Osmolality,Calculated 285 (275-295); Phosphorous 2.4 mg/dL (2.4-5.1); Potassium 4.5 mMol/L (3.4-5.1); Sodium 143 mMol/L (136-145); Total Protein 6.0 gm/dL (5.7-8.2); eGFR > 60 See Note
[2025-10-18] MEDS: HEPARIN SOD INJ 5000 UNIT/ML VIAL SC ×2 (08:44→21:19)
[2025-10-18] MEDS: LOSARTAN POTASSIUM 25 MG TABLET 50 MG PO (08:44)
[2025-10-18] MEDS: THIAMINE INJ 100 MG/ML VIAL 2 ML IVP (08:44)
--- NOTE | 2025-10-18 10:02 | PC.SS ---
Patient is a 75 year old female presenting to the hospital for AMS. HAND COOPER HELPER placed phone call to [facility] to verify if patient is a resident at facility. HAND COOPER HELPER spoke to staff at [facility], Katia,? who confirmed patient is on a bed hold there but is unsure if it 7 or 14 days. Katia stated that patient uses a walker and cpap. Katia stated that patient?s decision maker is her sister Jyothi Ferrer, phone number [phone]. Katia stated that PCP is Dr. Payne and last visit was on 09/20/25. HAND COOPER HELPER inquired if patient is able to return, Katia requested clinical notes and provided the following fax number [phone]. HAND COOPER HELPER sent over clinical packet via fax. D/c: [facility] PCP: Dr. Payne Decision maker: Jyothi (sister) [phone]
[2025-10-18] MEDS: LIOTHYRONINE SOD 5 mCg TABLET 10 MCG PO (10:18)
[2025-10-18] MEDS: SODIUM CHLORIDE 0.9% 1000 ML 1,000 ML 50 ML IV (11:36)
[2025-10-18] MEDS: KETOROLAC INJ 30 MG/ML VIAL IVP (11:36)
--- NOTE | 2025-10-18 14:20 | ESPR_ITS ---
<Statement entered by Brenden Lucio MD - 10/18/25 15:10> No acute overnight events but patient was noted to be agitated and required x 1 dose of trazodone. Upon evaluation in a.m., patient was initially resting comfortably in bed but after waking up he appeared visibly upset and uncomfortable stating that she was in pain. Touched base with patient's family as well as nurse from facility and confirmed that patient is not at her baseline as she is normally A&O x 4, cooperative, and conversational. Will continue to hold psychoactive medications at this time other than ropinirole and order valproic acid levels for further evaluation. If mentation does not improve again by today, will consult neurology tomorrow. BP 173/91 and saturating well on 2 L nasal cannula but otherwise vital signs stable. CBC unremarkable, CHEM panel showing improved LFTs and alk phos. ----- Note reviewed and agree with care plan as documented. Please refer to the note below for further details. Plan discussed with attending physician Dr. Mirza Lucio MD PGY-2 Internal Medicine Documentation for date of: 10/18/25 Subjective Subjective Interval history: Overnight patient was noted to be in pain and was seemingly agitated and was given trazodone x1. Patient this morning complained of R hip pain and stated she still needs morphine even though she was just given it during that time. Called patient's nurse at subacute facility, noted that patient had only been given tylenol at their facility despite her asking for morphine. Nurse noted that she had been lethargic from change in her psych meds and had fallen with her walker although it was noted to be a non-traumatic fall. Nurse states that her baseline is A&Ox4, cooperative and conversational. We also reached out to brother for updates and clarification on patient's status. Ordered valproic acid levels. Exam Vital Signs Temp Pulse Resp BP Pulse Ox O2 Del Method O2 Flow Rate 97.8 F 86 15 173/91 H 96 Nasal Cannula 3 10/18/25 12:00 10/18/25 12:00 10/18/25 12:00 10/18/25 12:00 10/18/25 12:00 10/18/25 12:00 10/18/25 12:00 FiO2 30 10/18/25 05:00 Narrative Exam General: Acute distress due to groin/upper leg pain; A&Ox2? (difficult to assess as patient not cooperative) Skin: Warm, dry, intact, no obvious rash. HENT: NCAT, EOMI/PERRL, not icteric. External ears normal. No rhinorrhea. Dry mucous membranes Cardiovascular: Regular rate and rhythm, no murmur, +S1/S2. Respiratory: Lungs CTAB, nasal cannula GI: Soft, nontender, non-distended. No guarding or rebound tenderness. : No suprapubic tenderness. No flank tenderness bilaterally. Extremities: no edema, no cyanosis, no clubbing. Extremity pulses present Neuro: Grossly nonfocal. Moving all 4 extremities. CN not formally tested but appear grossly intact. Psychiatric: not cooperative Objective Labs 10/18/25 04:46 10/18/25 04:46 Labs: Laboratory Results - last 24 hr 10/18/25 04:46 WBC 6.1 RBC 3.47 L Hgb 11.2 L Hct 33.7 L MCV 97 MCH 32.3 MCHC 33.2 RDW Std Deviation 45.8 Plt Count 207 Neut % (Auto) 63 Lymph % (Auto) 17 [place] % (Auto) 14 H Eos % (Auto) 5 Baso % (Auto) 1 Neut # (Auto) 3.8 Lymph # (Auto) 1.0 [place] # (Auto) 0.9 H Eos # (Auto) 0.3 Baso # (Auto) 0.1 Immature Gran # (Auto) 0.04 H Absolute Nucleated RBC 0.00 Immature Gran % 1 H Nucleated RBC % 0 Sodium 143 Potassium 4.5 Chloride 104 Carbon Dioxide 32.8 H Anion Gap 6 L BUN 14 Creatinine 0.5 L Estim Creat Clear Calc 127.0 eGFR > 60 BUN/Creatinine Ratio 28 H Glucose 94 Calculated Osmolality 285 Calcium 8.6 Corrected Calcium 9.2 Phosphorus 2.4 Magnesium 1.7 Total Bilirubin 0.4 AST 95 H ALT 93 H Alkaline Phosphatase 133 H D Total Protein 6.0 Albumin 3.2 L Globulin 2.8 Albumin/Globulin Ratio 1.1 L ABG Interpretation ABG results: 10/16/25 10/16/25 10/17/25 12:40 17:20 00:41 ABG pH 7.17 L* 7.28 L D 7.35 ABG pCO2 98 H* 73 H* D 62 H D ABG pO2 88 395 H D 95 D ABG HCO3 35 H 34 H 34 H ABG O2 Saturation 95 99 H 97 ABG Base Excess 3 5 H 6 H Quality Measures Quality Measures VTE prophylaxis Advance care planning discussed with:: patient and other Assessment & Plan Assessment Current Active Medications: Generic Name Dose Route Start Last Admin Trade Name Freq PRN Reason Stop Dose Admin Acetaminophen 650 mg 10/16/25 23:15 10/16/25 23:23 Acetaminophen 325 Mg Tablet PO 11/15/25 23:14 650 mg Q6HR PRN Administration Fever > 100.4 or pain 1-3 Albuterol/Ipratropium 3 ml 10/16/25 17:38 Albuterol/Ipratropium (Duoneb) Rt Yvonne 3 Ml Nebu INH 11/15/25 18:59 Q4HRRT PRN wheezing Bisacodyl 10 mg 10/17/25 13:35 Bisacodyl 10 Mg Supp HI 11/16/25 13:34 QDAY PRN CONSTIPATION Protocol Furosemide 20 mg 10/18/25 09:00 10/18/25 08:43 Furosemide 20 Mg Tablet PO 11/17/25 08:59 20 mg QDAY ROLA Administration Heparin Sodium (Porcine) 5,000 unit 10/16/25 21:00 10/18/25 08:44 Heparin Sod Inj 5000 Unit/Ml Vial SC 10/30/25 20:59 5,000 unit Q12HR ROLA Administration Sodium Chloride 1,000 mls @ 50 mls/hr 10/16/25 17:56 10/18/25 11:36 Ns IV 11/15/25 17:55 50 mls/hr .Q20H ROLA Administration Levothyroxine Sodium 125 mcg/ 150 mcg 10/17/25 06:00 10/18/25 05:14 Levothyroxine Sodium 25 mcg PO 11/16/25 05:59 150 mcg ACBR ROLA Administration Liothyronine Sodium 10 mcg 10/18/25 09:00 10/18/25 10:18 Liothyronine Sod 5 Mcg Tablet PO 11/17/25 08:59 10 mcg QDAY ROLA Administration Losartan Potassium 50 mg 10/18/25 09:00 10/18/25 08:44 Losartan Potassium 25 Mg Tablet PO 11/17/25 08:59 50 mg QDAY ROLA Administration Morphine Sulfate 1 mg 10/17/25 08:31 10/18/25 09:30 Morphine Sulf Inj 4 Mg/Ml Vial IVP 10/22/25 03:58 1 mg Q4HR PRN Administration PAIN SCALE 4-6 (Moderate Ropinirole HCl 3 mg 10/17/25 14:15 10/18/25 05:14 Ropinirole Hcl 1 Mg Tablet PO 11/16/25 14:14 3 mg TID ROLA Administration Thiamine HCl 100 mg 10/16/25 17:45 10/18/25 08:44 Thiamine Inj 100 Mg/Ml Vial 2 Ml IVP 11/15/25 17:44 100 mg QDAY ROLA Administration Plan Patient is a 75 year old female with PMH of Parkinsonism, HLD, HTN, chronic peripheral venous insufficiency, asthma, hypothyroidism, NF, and GERD who presents to the ED on 10/16/25 from [facility] for altered mental status. Admitted to telemetry for acute encephalopathy secondary to polypharmacy versus metabolic. #Acute encephalopathy 2/2 polypharmacy versus metabolic - Per brother patient had slurring speech and was not making sense for the past 2 days. AOx3, conversational and able to answer questions appropriately at baseline per brother but has history of developmental delay . - Of note, patient was started on risperidol and divalproex on 10/13 per chart review, was discontinued from olanzapine. - Called patient's nurse at subacute facility 10/18, noted that patient had only been given tylenol at their facility despite her asking for morphine. Nurse noted that she had been lethargic from change in her psych meds and had fallen with her walker although it was noted to be a non-traumatic fall. Nurse states that her baseline is A&Ox4, cooperative and conversational. - Found with GCS 7 by EMS, improved to GCS 14 in ED. - WBC WNL. Procal, trop, and LDH negative. - ABG pH 7.17, pCO2 98 ; improvement on subsequent abg's - UA was positive for leukocyte esterase, however rare bacteria. Unlikely UTI. - CT head negative for acute infarct. - Low suspicion for sepsis as she does not meet sepsis criteria and there is no suspected source of infection. - S/p CFX x1 and 2L LR bolus Plan: - Hold recently started home risperidol and divalproex. - Will consult neurology if patient fails to improve off medications - Ordered valproic acid levels. - Neuro check q4hr - Passed Speech Eval, dysphagia 3 diet started #AHRF likely secondary to respiratory depression from polypharmacy, improving #Hx asthma #Respiratory acidosis #Lactic acidosis (resolved) - Last taken risperidol and divalproex yesterday, new medications started on 10/13 which co-incides with time of altered mental status per brother's history - Lactic 11.9 on admission, improved to 1.1 s/p 3L IVF bolus - Suspect false elevation to that degree but possibly elevated secondary to respiratory depression - ABG shows respiratoray acidosis which may have been from these medications - CXR negative for PNA Plan: - Hold meds as above - Nasal cannula, wean O2 as tolerated - Duonebs prn #R-hip pain Patient almost continuously expresses pain in groin/upper leg pain Hip/Pelvis XR negative for acute fracture -Morphine 1 mg q4h rola #Hx Hypothyroidism - On levothyroxine 150 mcg daily and liothyronine 10 mcg daily Plan: - Resumed home levothyroxine 150 mcg daily #Hx Parkinsonism - On ropinirole 3 mg TID, primidone 150 mg BID Plan: - Resumed ropinirole 3 mg TID #Hx HTN - On Losartan 50 mg daily - BP 122/88 on admission Plan: - Resumed home losartan 50 mg daily #Hx Depression #Hx Agitation #Hx Insomnia - Outpatient meds of duloxetine 60 mg daily, melatonin 10 mg, and trazadone 50 mg HS - Previously on olanzapine for agitation but was changed to risperidol and divalproex as above Plan: - Resume duloxetine and melatonin if patient passes swallow eval - Hold trazadone - Hold olanzapine, risperidol, and divalproex - Seroquel prn for agitation #Hx Neuropathy - On pregabalin 100 mg TID Plan: - Hold for now #Hx constipation - Dulcolax suppository prn #Hypomagnesemia, RESOLVED - Mg 0.5 on admission Plan: - Repleted with 4g IV magnesium sulfate Health Maintenance Disposition: telemetry DVT prophylaxis: heparin SQ GI prophylaxis: none Diet: Dysphagia 3 CODE STATUS: DNR Patient plan of care was discussed with the attending physician, Dr. Blue & senior resident Dr. Naveed Britton MD PGY-1 Attending Provider Attestation/Addendum I have discussed and was present for the essential components of the history, physical examination, diagnosis, and treatment plan with the resident. I agree with the patient's care as documented by the resident and amended herein by me. Sridhar Blue DO. Although this document has been carefully reviewed, there may still be some phonetic and other typographical errors. These errors are purely grammatical due to imperfections in the software program and should not be construed in any way to compromise the substance of the patient's medical care during this visit. Patient seen and evaluated this AM. No acute events overnight, vital signs stable, patient afebrile, patient remains on 3 L NC, SpO2 96%. Labs largely unremarkable, bicarb is 32. Blood cultures NGTD. Patient's mentation and interaction the same as yesterday, she does have a history of developmental delay per the patient's family, still unclear if she is back to her baseline, we are waiting for the family to come visit and we could not get a hold of the SNF today however we will keep on trying. Likely DC tomorrow if in fact she is back to her baseline, we will continue her home meds to include liothyronine, levothyroxine, losartan and ropinirole for now.
[2025-10-18 17:12] LABS: Ammonia < 10 uMol/L (11-32)
[2025-10-18] MEDS: LIDOCAINE 5% 1 PATCH TOP (18:44)
[2025-10-18] MEDS: MELATONIN 3 MG TABLET 12 MG PO (21:12)
[2025-10-18] MEDS: MORPHINE SULF INJ 4 MG/ML VIAL 2 MG IVP (21:13)
[2025-10-19] VITALS (9 sets, daily range): BP systolic 138–165; BP diastolic 72–99; PULSE 67–89; RESP 15–18; TEMP 36.1–36.6; O2SAT 95–98; BMI 33.3
[2025-10-19] MEDS: MORPHINE SULF INJ 4 MG/ML VIAL 1 MG IVP (03:43)
[2025-10-19 06:10] LABS: Basophils # (Auto) 0.1 Thou/mm3 (0.0-0.2); Basophils % (Auto) 1 % (0-2.5); Eosinophils # (Auto) 0.4 Thou/mm3 (0.0-0.5); Eosinophils % (Auto) 6 % (0-10); Hematocrit 35.4 % (36.0-46.0); Hemoglobin 12.0 g/dL (12.0-16.0); Immature Granulocytes Auto 0.03 Thou/mm3 (0.00-0.00); Lymphocytes # (Auto) 1.0 Thou/mm3 (1.0-4.8); Lymphocytes % (Auto) 17 % (10-50); Mean Corpuscular HGB Conc 33.9 g/dl (31.0-37.0); Mean Corpuscular Hemoglobin 32.5 pg (25.0-35.0); Mean Corpuscular Volume 96 fL (80-100); Monocytes # (Auto) 0.8 Thou/mm3 (0.0-0.8); Monocytes % (Auto) 14 % (0-12); Neutrophils # (Auto) 3.8 Thou/mm3 (1.8-7.7); Neutrophils % (Auto) 62 % (37-80); Nucleated Red Blood Cell # 0.00 Thou/mm3 (0.00-0.00); Nucleated Red Blood Cell % 0 /100 WBC (0); Platelet Count 200 Thou/mm3 (140-440); RDW Standard Deviation 45.1 fL (36.4-46.3); Red Blood Count 3.69 Miln/mm3 (4.00-5.20); White Blood Count 6.1 Thou/mm3 (3.6-11.0)
[2025-10-19] MEDS: LEVOTHYROXINE SODIUM 125 MCG, LEVOTHYROXINE SODIUM 25 MCG 150 MCG PO (06:11)
[2025-10-19] MEDS: SODIUM CHLORIDE 0.9% 1000 ML 1,000 ML 50 ML IV (06:12)
[2025-10-19 06:44] LABS: Alanine Aminotransferase 66 U/L (10-49); Albumin, Serum 3.4 gm/dL (3.4-4.8); Albumin/Globulin Ratio 1.1 (1.2-2.2); Alkaline Phosphatase 124 U/L (46-116); Anion Gap 6 (7-16); Aspartate Amino Transferase 56 U/L (0-34); BUN/Creatinine Ratio 26 Ratio (12-20); Bilirubin,Total 0.3 mg/dL (0.3-1.2); Blood Urea Nitrogen 13 mg/dL (9-23); Calcium 9.0 mg/dL (8.3-10.6); Calcium (Corrected) 9.5 mg/dL (8.5-10.1); Carbon Dioxide 31.7 mMol/L (20.0-31.0); Chloride 105 mMol/L (98-107); Creatinine (Component) 0.5 mg/dL (0.6-1.3); Estimated Creatinine Clearance 127.7 mL/min (>60); Globulin 3.1 gm/dL (2.3-3.5); Glucose 78 mg/dL (74-106); Magnesium 1.7 mg/dL (1.6-2.6); Osmolality,Calculated 284 (275-295); Phosphorous 3.0 mg/dL (2.4-5.1); Potassium 4.1 mMol/L (3.4-5.1); Sodium 143 mMol/L (136-145); Total Protein 6.5 gm/dL (5.7-8.2); eGFR > 60 See Note
[2025-10-19] MEDS: THIAMINE INJ 100 MG/ML VIAL 2 ML IVP (08:00)
[2025-10-19] MEDS: HEPARIN SOD INJ 5000 UNIT/ML VIAL SC (08:00)
[2025-10-19] MEDS: LOSARTAN POTASSIUM 25 MG TABLET 50 MG PO (08:02)
[2025-10-19] MEDS: ACETAMINOPHEN 325 MG TABLET 650 MG PO (08:03)
[2025-10-19] MEDS: LIOTHYRONINE SOD 5 mCg TABLET 10 MCG PO (08:43)
--- NOTE | 2025-10-19 09:57 | PD.RESPRO ---
Documentation for date of: 10/19/25 Exam Vital Signs Temp Pulse Resp BP Pulse Ox O2 Del Method O2 Flow Rate 97.0 F 71 18 161/88 H 97 Room Air 4 10/19/25 08:00 10/19/25 08:04 10/19/25 08:00 10/19/25 08:04 10/19/25 08:00 10/19/25 08:00 10/19/25 03:57 FiO2 30 10/18/25 05:00 Objective Labs 10/19/25 05:25 10/19/25 05:25 Labs: Laboratory Results - last 24 hr 10/18/25 10/19/25 16:38 05:25 WBC 6.1 RBC 3.69 L Hgb 12.0 Hct 35.4 L MCV 96 MCH 32.5 MCHC 33.9 RDW Std Deviation 45.1 Plt Count 200 Neut % (Auto) 62 Lymph % (Auto) 17 [place] % (Auto) 14 H Eos % (Auto) 6 Baso % (Auto) 1 Neut # (Auto) 3.8 Lymph # (Auto) 1.0 [place] # (Auto) 0.8 Eos # (Auto) 0.4 Baso # (Auto) 0.1 Immature Gran # (Auto) 0.03 H Absolute Nucleated RBC 0.00 Immature Gran % 1 H Nucleated RBC % 0 Sodium 143 Potassium 4.1 Chloride 105 Carbon Dioxide 31.7 H Anion Gap 6 L BUN 13 Creatinine 0.5 L Estim Creat Clear Calc 127.7 eGFR > 60 BUN/Creatinine Ratio 26 H Glucose 78 Calculated Osmolality 284 Calcium 9.0 Corrected Calcium 9.5 Phosphorus 3.0 Magnesium 1.7 Total Bilirubin 0.3 AST 56 H ALT 66 H Alkaline Phosphatase 124 H Ammonia < 10 L Total Protein 6.5 Albumin 3.4 Globulin 3.1 Albumin/Globulin Ratio 1.1 L ABG Interpretation ABG results: 10/16/25 10/16/25 10/17/25 12:40 17:20 00:41 ABG pH 7.17 L* 7.28 L D 7.35 ABG pCO2 98 H* 73 H* D 62 H D ABG pO2 88 395 H D 95 D ABG HCO3 35 H 34 H 34 H ABG O2 Saturation 95 99 H 97 ABG Base Excess 3 5 H 6 H Quality Measures Quality Measures VTE prophylaxis Assessment & Plan Assessment Current Active Medications: Generic Name Dose Route Start Last Admin Trade Name Freq PRN Reason Stop Dose Admin Acetaminophen 650 mg 10/16/25 23:15 10/19/25 08:03 Acetaminophen 325 Mg Tablet PO 11/15/25 23:14 650 mg Q6HR PRN Administration Fever > 100.4 or pain 1-3 Albuterol/Ipratropium 3 ml 10/16/25 17:38 Albuterol/Ipratropium (Duoneb) Rt Yvonne 3 Ml Nebu INH 11/15/25 18:59 Q4HRRT PRN wheezing Bisacodyl 10 mg 10/17/25 13:35 Bisacodyl 10 Mg Supp SC 11/16/25 13:34 QDAY PRN CONSTIPATION Protocol Furosemide 20 mg 10/18/25 09:00 10/19/25 08:04 Furosemide 20 Mg Tablet PO 11/17/25 08:59 20 mg QDAY RADHA Administration Heparin Sodium (Porcine) 5,000 unit 10/16/25 21:00 10/19/25 08:00 Heparin Sod Inj 5000 Unit/Ml Vial SC 10/30/25 20:59 5,000 unit Q12HR RADHA Administration Sodium Chloride 1,000 mls @ 50 mls/hr 10/16/25 17:56 10/19/25 06:12 Ns IV 11/15/25 17:55 50 mls/hr .Q20H RADHA Administration Levothyroxine Sodium 125 mcg/ 150 mcg 10/17/25 06:00 10/19/25 06:11 Levothyroxine Sodium 25 mcg PO 11/16/25 05:59 150 mcg ACBR RADHA Administration Liothyronine Sodium 10 mcg 10/18/25 09:00 10/19/25 08:43 Liothyronine Sod 5 Mcg Tablet PO 11/17/25 08:59 10 mcg QDAY RADHA Administration Losartan Potassium 50 mg 10/18/25 09:00 10/19/25 08:02 Losartan Potassium 25 Mg Tablet PO 11/17/25 08:59 50 mg QDAY RADHA Administration Melatonin 12 mg 10/18/25 21:00 10/18/25 21:12 Melatonin 3 Mg Tablet PO 11/17/25 20:59 12 mg HS RADHA Administration Non-Formulary Medication 60 mg 10/19/25 10:00 Duloxetine PO 11/18/25 09:59 QDAY RADHA Olanzapine 5 mg 10/19/25 09:56 Olanzapine 5 Mg Tablet PO 11/18/25 09:55 Q6HR PRN AGITATION Ropinirole HCl 3 mg 10/17/25 14:15 10/19/25 06:11 Ropinirole Hcl 1 Mg Tablet PO 11/16/25 14:14 3 mg TID RADHA Administration Thiamine HCl 100 mg 10/16/25 17:45 10/19/25 08:00 Thiamine Inj 100 Mg/Ml Vial 2 Ml IVP 11/15/25 17:44 100 mg QDAY RADHA Administration
--- NOTE | 2025-10-19 11:21 | ESDS_ITS ---
Planned Discharge Date 10/19/25 DS: Providers Provider Date of admission: 10/16/25 15:50 Primary care physician: Gustavo Payne MD Admitting Provider: Rex Cuadra MD Attending Provider on Admission: Rex Cuadra MD Consults: 10/16/25 17:40 Referral Physical Therapy Routine Comment: Physician Instructions: Attending Provider on DC: Irvin Blue DO Discharging Provider: Irvin Blue DO DS: Diagnosis Problem List Completed Was Problem List Reviewed/Reconciled?: Yes Hospital Course Hospital Course Hospital course: Patient is a 75 year old female with PMH of Parkinsonism, HLD, HTN, chronic peripheral venous insufficiency, ?chronic back pain, asthma, hypothyroidism, NF, and GERD who presents to the ED on 10/16/25 from [facility] for altered mental status with GCS 7 per EMT and then GCS 15 in ED on evaluation but was not answering questions. Patient was admitted for acute encephalopathy secondary to polypharmacy versus metabolic. Patient was noted via history to have been recently changed from olanzapine to divalproex and risperdol, however, risperdol did not appear to be on her medication list. Patient initially needed bipap for hypercapnic hypoxic respiratory failure. Patient's respiratory status improved well. Patient given morphine as needed for hip pain throughout hospital course. Imaging done of the hips did not show any acute pathology. The patient was frequently yelling and not cooperating with staff during hospitalization. Hospital team contacted patient's nurse at the SNF where pt is a current resident of and confirmed with the sister that her baseline is A&Ox4 and is cooperative. On the day of discharge, Pt's mentation has improved, patient is A&Ox3 and is conversant. Patient is no longer in acute respiratory failure, saturating on room air. We are continuing most of her medications other than some of the anti-psychotics and will need to follow up with their pcp. Discharge Instructions ? Hold olanzapine and divalproex until follow-up with PCP ? Continue taking all other home medications as prescribed ? Follow-up with PCP and or psychiatrist within 1-2 weeks of discharge to optimize psychiatric medication ? If you do not have a PCP, you can follow-up at the [facility] (you can call [phone] to make an appointment) ? Return to ED if symptoms worsen or recur Admission Diagnosis #Acute encephalopathy #Polypharmacy #Acute hypoxic hypercapnic respiratory failure #Hx asthma #Respiratory acidosis #Lactic acidosis #R-hip pain #Hx Hypothyroidism #Hx Parkinsonism #Hx HTN #Hx Depression #Hx Agitation #Hx Insomnia #Hx Neuropathy #Hx constipation #Hypomagnesemia Patient plan of care was discussed with the attending physician, Dr. Blue & senior resident Dr. Gregg Britton MD PGY-1 Time Spent with Patient Time attestation: Total time spent providing and/or coordinating discharge services: Time spent: Greater than 30 minutes Exam Vital Signs Temp Pulse Resp BP Pulse Ox O2 Del Method O2 Flow Rate 97.0 F 71 18 161/88 H 97 Room Air 4 10/19/25 08:00 10/19/25 08:04 10/19/25 08:00 10/19/25 08:04 10/19/25 08:00 10/19/25 08:00 10/19/25 03:57 FiO2 30 10/18/25 05:00 Narrative Exam General: Waxing/Waning distress due to R-hip pain; A&Ox3 Skin: Warm, dry, intact, no obvious rash. HENT: NCAT, EOMI/PERRL, not icteric. External ears normal. No rhinorrhea. Dry mucous membranes Cardiovascular: Regular rate and rhythm, no murmur, +S1/S2. Respiratory: Lungs CTAB, nasal cannula GI: Soft, nontender, non-distended. No guarding or rebound tenderness. : No suprapubic tenderness. No flank tenderness bilaterally. Extremities: no edema, no cyanosis, no clubbing. Extremity pulses present Neuro: Grossly nonfocal. Moving all 4 extremities. CN not formally tested but appear grossly intact. Psychiatric: not cooperative Discharge Plan Plan Patient Disposition: Xfer Skilled Nsg Fac (SNF) Patient condition on transfer: Stable Care Plan Goals: ? Hold olanzapine and divalproex until follow-up with PCP ? Continue taking all other home medications as prescribed ? Follow-up with PCP and or psychiatrist within 1-2 weeks of discharge to optimize psychiatric medication ? If you do not have a PCP, you can follow-up at the [facility] (you can call [phone] to make an appointment) ? Return to ED if symptoms worsen or recur Prescriptions/Referrals Prescriptions/Med Rec: Continued vitamin B complex Tablet 1 tab PO QDAY sennosides-docusate sodium [Senna Plus] 8.6-50 mg tablet 1 tab-cap PO BID ropinirole 3 mg tablet 3 mg PO TID primidone 50 mg tablet 150 mg PO BID Rx Instructions: administer on days 4, 5, and 6 of therapy pregabalin 100 mg capsule 100 mg PO TID potassium chloride 10 mEq capsule, extended release 10 meq PO QDAY oxybutynin chloride 5 mg tablet 5 mg PO BID pantoprazole 40 mg tablet,delayed release (DR/EC) 40 mg PO QDAY levothyroxine 150 mcg capsule 150 mcg PO QDAY liothyronine 5 mcg tablet 10 mcg PO QDAY estradiol 0.5 mg tablet 0.5 mg PO QDAY Rx Instructions: off 5 days; repeat cycle duloxetine 60 mg capsule, delayed rel sprinkle 60 mg PO QDAY fluticasone furoate [Arnuity Ellipta] 100 mcg/actuation blister with device 1 inh inhalation QDAY cholecalciferol (vitamin D3) 125 mcg (5,000 unit) tablet 5,000 unit PO QDAY melatonin 10 mg capsule 10 mg PO QPM trazodone 50 mg tablet 50 mg PO QPM losartan 50 mg tablet 50 mg PO QDAY furosemide [Lasix] 20 mg tablet 20 mg PO QDAY acetaminophen 500 mg capsule 500 mg PO Q12H PRN (Reason: pain (scale score 4-6)) bismuth subsalicylate 262 mg/15 mL suspension 524 mg PO Q12H PRN (Reason: nausea) Rx Instructions: do not exceed 8 doses in a 24 hour period albuterol sulfate 2.5 mg /3 mL (0.083 %) solution for nebulization 1.25 mg inhalation Q6H ondansetron HCl 4 mg tablet 4 mg PO Q6H magnesium hydroxide [Milk of Magnesia] 400 mg/5 mL suspension 30 ml PO QDAY PRN (Reason: constipation) bisacodyl [Dulcolax (bisacodyl)] 10 mg suppository 10 mg VT QDAY PRN (Reason: constipation) Fleet Enema 19-7 gram/118 mL enema 118 ml VT QDAY PRN (Reason: constipation) albuterol sulfate [Ventolin HFA] 90 mcg/actuation HFA aerosol inhaler 2 inh inhalation Q4H PRN (Reason: sob) 30 Days Qty: 8.5 0RF Held divalproex 500 mg tablet,delayed release (DR/EC) 500 mg PO BID Hold Instructions: Hold until you follow-up with your PCP olanzapine 5 mg tablet 5 mg PO Q6HR PRN (Reason: agitation) Hold Instructions: Hold until you follow-up with your PCP Referrals: Gustavo Payne MD [Primary Care Provider] Patient/Caregiver Discharge Instructions Print Language: Japanese Stand Alone Forms: [facility] Award Info., Patient Portal Info Letter Discharge Order Discharge Orders: Discharge (Routine); Ordered 10/19/25 Ordered By: Brenden Lerma Inyosef Quality Discharge Quality Measures VTE prophylaxis Attestestation MD Attestation I have discussed and was present for the essential components of the discharge history, physical examination, diagnosis, and discharge treatment plan with the resident. I agree with the patient's discharge care as documented by the resident and amended herein by me. Sridhar Blue DO. The patient understood all discharge instructions, all questions were answered satisfactorily. The patient was instructed to return to the Emergency Department is symptoms worsened or persisted. Patient back to baseline at time of discharge. We did hold recently started divalproex and olanzapine for now until the patient follows up with her primary care physician to avoid any further episodes of respiratory depression and acute on chronic encephalopathy. Patient was stable, afebrile tolerating p.o. intake at time of discharge back to facility Although this document has been carefully reviewed, there may still be some phonetic and other typographical errors. These errors are purely grammatical due to imperfections in the software program and should not be construed in any way to compromise the substance of the patient's medical care during this visit.
[2025-10-19] MEDS: DULoxetine HCL 30 MG CAPSULE 60 MG PO (11:39)
--- NOTE | 2025-10-19 13:38 | PC.SS ---
Transport initiated via [employer]. Preferred vendor [employer]. Reference #[id number]. Pending authorization.
--- NOTE | 2025-10-19 13:39 | PC.SS ---
Update clinicals submitted to [facility] via [employer] fax.
--- NOTE | 2025-10-19 13:39 | PC.SS ---
TECHNICAL INSPECTOR confirmed with [facility] at [facility] staffLaila; that patient can return to facility. TECHNICAL INSPECTOR informed discharge to occur today. Awaiting transport time.
--- NOTE | 2025-10-19 15:12 | PC.NURSE ---
Report given to brigido [facility] to Laila MEADOWS all concerns and questions answered
[2025-10-26 07:26] LABS: Valporic Acid (Depak)* <4.0 mg/L (50.0-100.0)
== END 2025-10-19 16:36 | disposition skilled nursing facility (03) | DRG 91 ==
LOC: SERX 16:21 → SERHOLD 16:30 → S2NX 10-17 16:58 → S3NX 10-18 20:22
PROVIDERS: Nurse Practitioner Family; Student in an Organized Health Care Education/Training Program; Admitting Provider Internal Medicine; Emergency Provider Emergency Medicine; PCP Hospitalist; Visit Provider Internal Medicine
DX: G92.8 Other toxic encephalopathy (principal); J96.01 Acute respiratory failure with hypoxia; J96.02 Acute respiratory failure with hypercapnia; E87.29 Other acidosis; I87.2 Venous insufficiency (chronic) (peripheral); K21.9 Gastro-esophageal reflux disease without esophagitis; J45.909 Unspecified asthma, uncomplicated; I10 Essential (primary) hypertension; E03.9 Hypothyroidism, unspecified; R47.81 Slurred speech; G20.C Parkinsonism, unspecified; F32.A Depression, unspecified; G47.00 Insomnia, unspecified; G62.9 Polyneuropathy, unspecified; K59.00 Constipation, unspecified; E83.42 Hypomagnesemia; Z79.890 Hormone replacement therapy; Z66 Do not resuscitate; Z74.01 Bed confinement status; Z79.899 Other long term (current) drug therapy; E78.5 Hyperlipidemia, unspecified
CPT/HCPCS: 36415; 36600; 51701; 70450; 71045; 73521; 80048; 80053; 80061; 80164; 81001; 82140; 82803; 83036; 83605; 83615; 83690; 83735; 83880; 84100; 84145; 84443; 84484; 85025; 85610; 85730; 87040; 87081; 87502; 87635; 92610; 93005; 93225; 94660; 94664; 96361; 96365; 96366; 97163; 99291; 99292; J0696; J1644; J1885; J2270; J3411; J3475; J3490; J7030; J7120; A9270